=== PATIENT | female | born 1995 | race Caucasian/White ===

== ENCOUNTER 2018-08-06 00:49 | Emergency (ER) | END 2018-08-06 01:30 | disposition home or self-care (01) ==

== ENCOUNTER 2018-08-06 02:03 | Outpatient (CLI) | END 2018-08-06 04:30 | disposition home or self-care (01) ==

== ENCOUNTER 2018-08-27 02:58 | Outpatient (CLI) | END 2018-08-27 07:20 | disposition home or self-care (01) ==

== ENCOUNTER 2018-09-21 06:06 | Inpatient (IN) | END 2018-09-24 14:40 | disposition home or self-care (01) | DRG 788 ==

== ENCOUNTER 2018-10-07 19:24 | Emergency (ER) | END 2018-10-07 23:48 | disposition home or self-care (01) ==